=== PATIENT | female | born 1965 | race Caucasian/White ===

== ENCOUNTER 2017-09-15 08:06 | Day surgery (SDC) | payer BC ==
[2017-09-15] MEDS ORDERED: PROPOFOL 40 ML (09:21)
== END 2017-09-16 08:21 | disposition home or self-care (01) ==
LOC: GIL 08:06
DX: Z12.11 Encounter for screening for malignant neoplasm of colon (principal); D12.5 Benign neoplasm of sigmoid colon; K64.8 Other hemorrhoids
CPT/HCPCS: 45380; 84703; 88305